=== PATIENT | female | born 1960 | race Caucasian/White ===

== ENCOUNTER → 2024-03-12 09:53 | Outpatient (REF) | payer OTHER, SELFPAY | LOC: WDC 09:53 | PROVIDERS: ATTENDING PHYSICIAN Obstetrics & Gynecology; FAMILY PHYSICIAN Internal Medicine | DX: R92.2 Inconclusive mammogram (principal); Z80.3 Family history of malignant neoplasm of breast | CPT/HCPCS: 76641 ==

== ENCOUNTER → 2024-12-31 09:03 | Outpatient (REF) | payer MEDICARE, OTHER, SELFPAY | LOC: HWRAD 09:03 | PROVIDERS: ATTENDING PHYSICIAN Internal Medicine | DX: Z78.0 Asymptomatic menopausal state (principal); Z12.31 Encounter for screening mammogram for malignant neoplasm of breast | CPT/HCPCS: 77063; 77067; 77080 ==

== ENCOUNTER 2025-03-20 10:17 | Emergency (ER) | payer MEDICARE, OTHER, SELFPAY ==
[2025-03-20 10:21] VITALS: BP 123/70
--- NOTE | 2025-03-20 10:54 | ED.GENMED ---
History of Present Illness
General
Chief Complaint: Musculo-Skeletal Complaint
Source: patient
Exam Limitations: none
Time Seen by Provider: 03/20/25 10:40
History of Present Illness
History of Present Illness:
64-year-old female complaining of posterior neck pain. Nontraumatic. Started 2 weeks ago but then seemed to improve. Much worse over the last 24 hours. Mostly right posterior neck. Worse with position. No nausea or vomiting. No neurologic
symptoms. No fever. Some mild relief with Motrin this morning
Past History
Past History
ED Past Medical History: None
Social History
Tobacco: Non-smoker
Alcohol: None
Family History
Family History: Hypertension and Other (Family history of arrhythmia)
Phy Exam
Physical Exam
Physical Exam:
GENERAL: Alert and oriented in no apparent distress. Ambulated to the room without difficulty.
EYE: Orbits normal.
NECK: Diffuse decreased range of motion with bilateral paracervical tenderness greater on the right
ENT: Pharynx without erythema
CARDIAC: Regular rate and rhythm without any obvious murmurs.
LUNGS: Clear breath sounds,normal
ABDOMEN: Soft, without focal tenderness or distention
NEUROLOGICAL: Alert and oriented , grossly non-focal. Psych Coordinator normal. Interosseous intact. Flexion extension of the wrist normal. Lower extremity strength normal.
SKIN: Warm and dry, no rash or lesion, no discoloration, skin intact.
MUSCULOSKELETAL: No edema,no deformity.Good color
PSYCH: Normal and appropriate interaction.
Course
Orders/Labs/Results
Orders:
Orders
03/20/25 10:52
IV Insert/Care/Rem.- Treatment PRN
0.9% Sodium Chloride 500 ml [Nss] 500 ml IV BOLUS
Diazepam [Valium] 2 mg PO NOW STA
Ketorolac [Toradol] 15 mg IV NOW STA
03/20/25 10:53
CT Head W/o Iv Contrast Urgent
Comment:
Reason For Exam: Nontraumatic posterior neck pain
CT Neck Angio W/wo Iv Contrast Urgent
Comment:
Reason For Exam: Nontraumatic posterior neck pain
03/20/25 11:11
Basic Metabolic Panel Urgent
CRP [C-Reactive Protein] Urgent
Complete Blood Count/With Diff Urgent
Erythrocyte Sed Rate Urgent
Abnormal Lab Results
03/20/25
11:11
Absolute Neuts (auto) 6.9 H 10^3/uL
(1.4-6.5)
Lymphocytes % 19.6 L %
(20.5-51.1)
03/20/25 11:11
03/20/25 11:11
Vital Signs
Initial and Last Documented VS:
Initial Vital Signs
Temp Pulse Resp BP Pulse Ox
98.2 F 72 16 123/70 97
03/20/25 10:21 03/20/25 10:21 03/20/25 10:21 03/20/25 10:21 03/20/25 10:21
Last Documented Vital Signs
Temp Pulse Resp BP Pulse Ox
98.2 F 72 16 126/72 97
03/20/25 10:21 03/20/25 10:21 03/20/25 12:00 03/20/25 11:26 03/20/25 11:23
MDM/Problems Addressed
MDM/Problems Addressed:
Patient with nontraumatic posterior neck pain. No neurologic issues. No infectious issues. Likely musculoskeletal however feel dissection should be ruled out.
*Pulse Oximetry
Patient hypoxic: no
*Critical Care Note
Total Time (30-74mins, 75-104mins- exclusive of procedures): Not Applicable
Update Note
Update Note:
Testing stable. Clinically musculoskeletal. Neurologic exam within normal limits. She did have some relief with Valium and Toradol.
ED Attending Note
-
Portions of this chart may have been created with voice recognition software.� Occasional wrong word or��sound alike� substitutions may have occurred due to the inherent limitations of voice recognition software.
Discharge Plan
Departure
Patient Disposition: Home (Routine Discharge)
Date of Disposition: 03/20/25
Time of Disposition: 12:47
Patient with high blood pressure during this ER visit?: Yes
Discharge Problem:
Neck pain, Cervical degenerative changes
Instructions: Ibuprofen, Neck pain - ED discharge instructions, BLOOD PRESSURE
Prescriptions:
New
diazepam [Valium] 2 mg tablet
2 mg PO QID PRN (Reason: muscle spasm) Qty: 10 0RF
No Action
citalopram 10 MG tablet
10 mg PO DAILY
lorazepam 0.5 MG tablet
0.5 mg PO HSPRN PRN (Reason: insomnia)
doxylamine succinate [Unisom (doxylamine)] 25 MG tablet
25 mg PO HSPRN PRN (Reason: insomnia)
cholecalciferol (vitamin D3) [Vitamin D3] 1,000 UNIT capsule
1,000 unit PO DAILY
[id number] oil 1 EACH capsule
1 ea PO DAILY
ferrous sulfate 325 MG tablet,delayed release (DR/EC)
325 mg PO DAILY Qty: 30 0RF
Referrals:
Sabrina Burris MD [Family Provider] -
Activity Restrictions/Additional Instructions:
The prescription was sent to your pharmacy
Close follow-up with your primary physician
Interventions
Interventions:
*Risk Screen - Suicide Last Done: 03/20/25 11:19
*General Assessment Last Done: 03/20/25 11:19
*Neglect/Abuse Screening Last Done: 03/20/25 11:19
*ED- Fall Risk Assessment Last Done: 03/20/25 11:19
*ED COVID-19 Vaccine History Last Done: 03/20/25 11:19
ED-Musculoskeletal Assessment Last Done: 03/20/25 11:19
Discharge Date and Time
Print Language: YAKUT
[2025-03-20] MEDS: VALIUM 2 MG PO (11:11)
[2025-03-20] MEDS: TORADOL 15 MG IV (11:11)
[2025-03-20] MEDS: NSS 500 IV (11:11)
[2025-03-20 11:22] LABS: % Basophils 0.5 % (0-2); % Eosinophils 2.1 % (0-6); % Immature Granulocytes 0.2 % (0-0.5); % Lymphocytes 19.6 % (20.5-51.1); % Monocytes 6.1 % (1.7-9.3); % Neutrophils 71.5 % (42.2-75.2); Absolute Basophils 0.1 10^3/uL (0-0.2); Absolute Eosinophils 0.2 10^3/uL (0-0.7); Absolute Lymphocytes 1.9 10^3/uL (1.2-3.4); Absolute Monocytes 0.6 10^3/uL (0.1-0.6); Absolute Neutrophils 6.9 10^3/uL (1.4-6.5); Hematocrit 39.7 % (37.0-47.0); Hemoglobin 13.1 g/dL (12.0-16.0); Mean Corpuscular Hgb 28.4 pg (27.0-31.0); Mean Corpuscular Volume 86.1 fL (81.0-99.0); Mean Platelet Volume 10.3 fL (7.4-10.4); Nucleated Red Blood Cells % 0 %; Platelet Count 218 10^3/uL (130-400); Red Blood Cell Count 4.61 10^6/uL (4.20-5.40); Red Cell Dist. Width 13.2 % (11.5-14.5); White Blood Cell Count 9.6 10^3/uL (4.8-10.8)
[2025-03-20 11:26] VITALS: BP 126/72
[2025-03-20 11:36] LABS: Blood Urea Nitrogen 17 mg/dl (7-17); Calcium 9.2 mg/dl (8.4-10.2); Carbon Dioxide 26 mmol/L (22-30); Chloride 106 mmol/L (98-107); Glucose 95 mg/dl (70-99); Potassium 4.3 mmol/L (3.5-5.1); Sodium 143 mmol/L (135-145); eGFR > 60.00
[2025-03-20 11:40] LABS: Erythrocyte Sed Rate 20 mm/hour (0-20)
[2025-03-20 13:10] VITALS: BP 118/70
== END 2025-03-20 13:19 | disposition home or self-care (01) ==
LOC: EMR 10:17
PROVIDERS: EMERGENCY PHYSICIAN Emergency Medicine; FAMILY PHYSICIAN Internal Medicine
DX: M47.812 Spondylosis without myelopathy or radiculopathy, cervical region (principal); M54.2 Cervicalgia; R03.0 Elevated blood-pressure reading, without diagnosis of hypertension
CPT/HCPCS: 99284; 96361 ×2; 96374; 70450; 70498; 80048; 85025; 85652; 86140; Q9967

== ENCOUNTER → 2025-04-14 09:51 | Outpatient (REF) | payer MEDICARE, OTHER, SELFPAY | LOC: HWRAD 09:51 | PROVIDERS: ATTENDING PHYSICIAN Internal Medicine Rheumatology; FAMILY PHYSICIAN Internal Medicine | DX: M81.0 Age-related osteoporosis without current pathological fracture (principal); M54.9 Dorsalgia, unspecified | CPT/HCPCS: 72110 ==

== ENCOUNTER → 2025-06-22 13:46 | Outpatient (REF) | payer MEDICARE, OTHER, SELFPAY | LOC: PAVMRI 13:46 | PROVIDERS: ATTENDING PHYSICIAN Psychiatry & Neurology Neurology; FAMILY PHYSICIAN Internal Medicine | DX: R41.3 Other amnesia (principal) | CPT/HCPCS: 70551 ==